=== PATIENT | female | born 1975 | race Caucasian/White ===

== ENCOUNTER → 2020-02-28 15:09 | Outpatient (CLI) | payer OTHER ==
[2010-06-11 07:38] VITALS: BMI 23.4
[2020-02-28 16:26] LABS: ANION GAP 12.9 mmol/L (8-16); CARBON DIOXIDE 25.4 mmol/L (21.0-32.0); CREATININE - SERUM 1.6 mg/dL (0.6-1.3); POTASSIUM - SERUM 3.3 mmol/L (3.5-5.1)
[2020-02-28 16:34] LABS: CALCIUM 6.9 mg/dL (8.5-10.1)
== END | disposition home or self-care (01) ==
LOC: D.LABREF 15:09
PROVIDERS: ATTEND Internal Medicine Medical Oncology
DX: C18.9 Malignant neoplasm of colon, unspecified (principal); C79.62 Secondary malignant neoplasm of left ovary; C78.7 Secondary malignant neoplasm of liver and intrahepatic bile duct; N39.0 Urinary tract infection, site not specified

== ENCOUNTER → 2020-03-11 19:36 | Outpatient (CLI) | payer OTHER ==
[2010-06-11 07:38] VITALS: BMI 23.4
[2020-03-11 21:55] LABS: HEMATOCRIT 28.1 % (36.0-48.0); HEMOGLOBIN 8.7 g/dL (12-16); MCH 27.4 pg (26.0-34.0); MCV 88.4 fL (80.0-100.0); RBC 3.18 10x6/uL (4.00-5.40); RDW 16.3 % (11.5-14.5); WBC 2.1 10x3/uL (4.8-10.8)
[2020-03-11 21:57] LABS: PLATELET COUNT 84 10x3/uL (130-400)
[2020-03-11 22:12] LABS: CARBON DIOXIDE 30.3 mmol/L (21.0-32.0); CHLORIDE - SERUM 104 mmol/L (98-107); CREATININE - SERUM 0.7 mg/dL (0.6-1.3); SODIUM 139 mmol/L (136-145); UREA NITROGEN 10 mg/dL (7-18); eGFR NON AFRICAN AMERICAN > 90 mL/min (90-120)
[2020-03-11 22:14] LABS: CALC OSMOLALITY 273 mosm/kg (275-300); CALCIUM 6.5 mg/dL (8.5-10.1); GLUCOSE 52 mg/dL (74-106); POTASSIUM - SERUM 2.6 mmol/L (3.5-5.1)
[2020-03-11 22:40] LABS: LYMPHOCYTES 24 % (15-50); NEUTROPHILS 74 % (40-80); PLATELET ESTIMATE DECREASED
== END | disposition home or self-care (01) ==
LOC: D.LABREF 19:36
PROVIDERS: ATTEND Internal Medicine Medical Oncology
DX: C18.9 Malignant neoplasm of colon, unspecified (principal); N39.0 Urinary tract infection, site not specified; C78.7 Secondary malignant neoplasm of liver and intrahepatic bile duct

== ENCOUNTER → 2020-03-18 20:35 | Outpatient (CLI) | payer OTHER ==
[2010-06-11 07:38] VITALS: BMI 23.4
== END | disposition home or self-care (01) ==
LOC: D.LABREF 20:35
PROVIDERS: ATTEND Internal Medicine Medical Oncology
DX: C18.9 Malignant neoplasm of colon, unspecified (principal); C78.7 Secondary malignant neoplasm of liver and intrahepatic bile duct; N39.0 Urinary tract infection, site not specified